=== PATIENT | male | born 1980 ===

== ENCOUNTER 2019-07-04 11:47 | Emergency (ER) | payer MEDICAID ==
[~2019-07-04] VITALS: Ht 185.4 cm; Wt 76.4 kg
[2019-07-04 12:00] VITALS: BP 125/83
--- NOTE | 2019-07-04 12:18 | NUR ---
Pt decided to leave AMA, declining treatment, paperwork signed, pt and friend ambulated out of ER.
== END 2019-07-04 12:20 | disposition left against medical advice (07) ==
LOC: ED 12:09
DX: F41.1 Generalized anxiety disorder (principal); F22 Delusional disorders
CPT/HCPCS: 99281